=== PATIENT | female | born 1955 | race Caucasian/White ===

== ENCOUNTER → 2024-08-01 11:00 | Outpatient (REF) | payer OTHER, SELFPAY | LOC: PAVMRI 11:00 | PROVIDERS: ATTENDING PHYSICIAN Orthopaedic Surgery; FAMILY PHYSICIAN Nurse Practitioner Adult Health | DX: M25.559 Pain in unspecified hip (principal); Z96.642 Presence of left artificial hip joint | CPT/HCPCS: 73721 ==

== ENCOUNTER → 2024-09-20 10:00 | Outpatient (REF) | payer OTHER, SELFPAY | LOC: HWWDC 10:00 | PROVIDERS: ATTENDING PHYSICIAN Nurse Practitioner Adult Health | DX: Z87.891 Personal history of nicotine dependence (principal); Z12.31 Encounter for screening mammogram for malignant neoplasm of breast | CPT/HCPCS: 71271; 77063; 77067 ==